=== PATIENT | male | born 1930 | race Caucasian/White ===

== ENCOUNTER → 2018-01-07 | Outpatient (CLI) | payer MEDICARE, OTHER ==
[~2018-01-07] MED LIST: ACULAR LS 5 ML5 ML; ALLEGRA 180MG180 MG PO; ALLEGRA180 MG PO; ASPIRIN E.C. 8181 MG PO; ATENOLOL100 MG PO; BACTRIM PO; BUTALBITAL/APAP1 TA1 PO; FLONASE NASAL S16 GM NS; HYDROCODONE/APAP PO; KLONOPIN 0.5MG0.5 MG PO; KLONOPIN2 MG PO; LIPOFEN150 MG PO; LOPID 600M600 MG/TAB PO; LOTREL 5 MG-201 CAP PO; LOTREL 5/20 CAP1 CAP PO; LUTEIN PO; MIRALAX PA17 GM/Dose PO; MIRAPEX0.25 MG PO; MOTRIN 800800 MG/TAB PO; OCUFLOX OPHTH DR5 ML; PRED FORTE 1 ML1 ML; PRILOSEC 20MG20 MG PO; SILDENAFIL; STALEVO 100 251 TAB PO; SYNTHROID0.05 MG/TA PO; TENORMIN100 MG PO; VESICARE10 MG PO; ZOFRAN 4MG T4 MG/TAB PO; [UNRECOGNIZED DRUG - OTHER] PO
== END ==
LOC: COL.RAD 17:18
DX: R07.89 Other chest pain (principal); R29.6 Repeated falls; Z91.81 History of falling; G20 Parkinson's disease; Z87.81 Personal history of (healed) traumatic fracture

== ENCOUNTER → 2018-02-15 | Outpatient (CLI) | payer MEDICARE, OTHER | LOC: COL.CARD 12:53 | DX: R00.2 Palpitations (principal) ==

== ENCOUNTER 2018-09-27 08:13 | Emergency (ER) | payer MEDICARE, OTHER ==
[~2018-09-27] VITALS: Ht 175.3 cm; Wt 93.2 kg
[2018-09-27 08:13] VITALS: TEMP 99
[2018-09-27 08:44] LABS: BASO % 0.2 % (0.0-2.0); EOS # 0.1 (0.0-0.7); EOS % 0.8 % (0-4.0); GRAN # 7.4 (1.4-6.5); GRAN % 83.8 % (42.2-75.2); HEMATOCRIT 37.2 % (42.0-52.0); HEMOGLOBIN 13.3 g/dl (13.5-18.0); LYMPH # 0.7 (1.2-3.4); MEAN CELL VOLUME 93 fl (80.0-100.0); MEAN CORPUSCULAR HEMOGLOBIN 33 pg (27.0-31.0); MEAN CORPUSCULAR HGB CONC 36 g/dl (33.0-37.0); MEAN PLATELET VOLUME 9.7 fl (7.4-10.4); MONO # 0.6 (0.1-0.6); MONO % 6.7 % (1.7-9.3); PLATELET COUNT 263 K/mm3 (130-400); RED BLOOD COUNT 4.01 M/mm3 (4.20-5.60); REDCELL DISTRIBUTION WIDTH-CV 12.1 % (11.5-14.5)
[2018-09-27 08:50] LABS: INR 1.1 (0.8-3.0); PROTHROMBIN TIME 12.5 SECONDS (9.7-12.8)
[2018-09-27 08:52] LABS: ALBUMIN 3.7 gm/dL (3.5-5.0); CALCIUM 8.7 mg/dL (8.4-10.2); CREATININE, serum 1.28 (0.66-1.25); POTASSIUM 3.7 mmol/L (3.4-5.0); TOTAL PROTEIN 7.3 gm/dL (6.4-8.2)
[2018-09-27] MEDS ORDERED: SYNTHROID0.075 MG/T PO (09:18)
[2018-09-27] MEDS ORDERED: NAMENDA 10MG TA10 MG PO (09:18)
[2018-09-27] MEDS ORDERED: LOPRESSOR 225 MG/TAB PO (09:18)
[2018-09-27] MEDS ORDERED: MIRAPEX 1MG PO (09:18)
[2018-09-27] MEDS ORDERED: ZYRTEC 10MG10 MG PO (09:18)
[2018-09-27] MEDS ORDERED: KLONOPIN 1MG1 MG PO (09:18)
[2018-09-27 09:19] LABS: BILIRUBIN,TOTAL 0.4 mg/dL (0.0-1.0)
[2018-09-27] MEDS ORDERED: LUTEIN20 M1 PO (09:19)
[2018-09-27] MEDS ORDERED: FLEXERIL 1010 MG/TAB PO (10:41)
[2018-09-27 11:38] VITALS: BP 169/72; PULSE 77
== END 2018-09-27 11:39 | disposition home or self-care (01) ==
LOC: COL.ER 08:13
PROVIDERS: Emergency Medicine
DX: S01.21XA Laceration without foreign body of nose, initial encounter (principal); I10 Essential (primary) hypertension; G20 Parkinson's disease; G30.9 Alzheimer's disease, unspecified; F02.80 Dementia in other diseases classified elsewhere, unspecified severity, without behavioral disturbance, psychotic disturbance, mood disturbance, and anxiety; Z79.51 Long term (current) use of inhaled steroids; Z79.82 Long term (current) use of aspirin; W01.0XXA Fall on same level from slipping, tripping and stumbling without subsequent striking against object, initial encounter; Y92.129 Unspecified place in nursing home as the place of occurrence of the external cause
CPT/HCPCS: J7040